=== PATIENT | male | born 1980 | race Caucasian/White ===

== ENCOUNTER 2017-06-09 20:44 | Emergency (ER) | payer BC, MEDICAID ==
[2017-06-09] MEDS ORDERED: Aspirin 81 MG Tab.Chew PO ONE (20:53)
[2017-06-09] MEDS ORDERED: Sodium Chloride 0.9% 1,000 ML IV ONE (20:53)
[2017-06-09] MEDS ORDERED: Nitroglycerin 0.4 MG Tab.SL SL PRN (20:53)
--- NOTE | 2017-06-09 20:56 | EDM.PDOC ---
ED HPI GENERAL MEDICAL PROBLEM - General Chief Complaint: Cardiovascular Problem Stated Complaint: UNK Time Seen by Provider: 06/09/17 20:55 Source of Information: Reports: Patient - History of Present Illness INITIAL COMMENTS - FREE TEXT/NARRATIVE: HISTORY AND PHYSICAL: History of present illness: []Patient presents with history of defibrillator secondary to atrial fibrillation and cardiac hypertrophy, [place] exertion. his defibrillator discharged on 2 separate occasions in the last hour on arrival to the emergency room by private vehicle, he does not appear in distress, he remains lightheaded EKG with inferior changes on ekg. he does not complain of actual chest pain heart rate is ranging between 90 and 113 current No fever nausea vomiting chills sweats no association with shortness of breath or diaphoresis and again no chest pain Review of systems: As per history of present illness and below otherwise all systems reviewed and negative. Past medical history: As per history of present illness and as reviewed below otherwise noncontributory. Surgical history: As per history of present illness and as reviewed below otherwise noncontributory. Social history: No reported history of drug or alcohol abuse. Family history: As per history of present illness and as reviewed below otherwise noncontributory. Physical exam: HEENT: Atraumatic, normocephalic, pupils reactive, negative for conjunctival pallor or scleral icterus, mucous membranes moist, throat clear, neck supple, nontender, trachea midline. Lungs: Clear to auscultation, breath sounds equal bilaterally, chest nontender. Heart: S1S2, regular, negative for clicks, rubs, or JVD. Abdomen: Soft, nondistended, nontender. Negative for masses or hepatosplenomegaly. Negative for costovertebral tenderness. Pelvis: Stable nontender. Genitourinary: Deferred. Rectal: Deferred. Extremities: Atraumatic, negative for cords or calf pain. Neurovascular unremarkable. Neuro: Awake, alert, oriented. Cranial nerves II through XII unremarkable. Cerebellum unremarkable. Motor and sensory unremarkable throughout. Exam nonfocal. Diagnostics: []Lab as below EKG Chest 1 view Therapeutics: []Normal saline bolus Aspirin 324 mg chewable Nitroglycerin 0.4 sublingual discontinued/not provided Morphine 2 mg IV Heparin bolus followed by drip per protocol tnk initially considered however canceled as his repeat EKG findings have improved and appears less likely to be STEMI in the absence of chest pain and dizziness has resolved Impression: []ACS Definitive disposition and diagnosis as appropriate pending reevaluation and review of above. - Related Data Allergies Allergy/AdvReac Type Severity Reaction Status Date / Time No Known Allergies Allergy Verified 06/09/17 20:50 Home Meds: Home Meds Metoprolol Tartrate 25 mg PO BID #30 tablet 10/05/16 [Rx] Metoprolol Tartrate [Lopressor] 25 mg PO Q12HR #30 tablet 10/05/16 [Rx] Rivaroxaban [Xarelto] 1 each PO DAILY #1 tab.ds.pk 10/05/16 [Rx] Rivaroxaban [Xarelto] 15 mg PO BID #42 tablet 10/05/16 [Rx] Past Medical History HEENT History: Reports: None Cardiovascular History: Reports: Afib, Heart Murmur, SOB on Exertion, Other ( See Below) Other Cardiovascular History: hypotropic cardiomyopathy Respiratory History: Reports: None Gastrointestinal History: Reports: None Genitourinary History: Reports: None Musculoskeletal History: Reports: None Neurological History: Reports: None Psychiatric History: Reports: None Endocrine/Metabolic History: Reports: None Hematologic History: Reports: None Immunologic History: Reports: None Oncologic (Cancer) History: Reports: None Dermatologic History: Reports: None - Past Surgical History Cardiovascular Surgical History: Reports: Other (See Below) Social & Family History - Tobacco Use Smoking Status *Q: Former Smoker - Caffeine Use Caffeine Use: Reports: Soda - Recreational Drug Use Recreational Drug Use: Yes Drug Use in Last 12 Months: Yes ED ROS GENERAL - Review of Systems Review Of Systems: ROS reveals no pertinent complaints other than HPI. ED EXAM, GENERAL - Physical Exam Exam: See Below Course - Vital Signs Last Recorded V/S: Last Vital Signs Temp 36.6 C 06/09/17 20:50 Pulse 108 H 06/09/17 20:50 Resp 20 06/09/17 20:50 BP 139/88 06/09/17 20:50 Pulse Ox 98 06/09/17 20:50 - Orders/Labs/Meds Orders: Active Orders 24 hr Category Date Time Status Chest 1V Frontal [CR] Stat Exams 06/09/17 20:54 Taken UA W/MICROSCOPIC [URIN] Stat Lab 06/09/17 20:54 Uncollected Sodium Chloride 0.9% [Normal Saline] 1,000 ml Med 06/09/17 20:53 Active IV STAT Medication Orders Sodium Chloride (Normal Saline) 1,000 mls @ 999 mls/hr IV STAT ONE Stop: 06/09/17 21:53 Last Admin: 06/09/17 21:14 Dose: 999 mls/hr Labs: Laboratory Tests 06/09/17 06/09/17 06/09/17 Range/Units 21:05 21:05 21:05 WBC 12.69 H (4.0-11.0) K/uL RBC 5.38 (4.50-5.90) M/uL Hgb 15.8 (13.0-17.0) g/dL Hct 46.2 (38.0-50.0) % MCV 85.9 (80.0-98.0) fL MCH 29.4 (27.0-32.0) pg MCHC 34.2 (31.0-37.0) g/dL RDW Std Deviation 40.8 (28.0-62.0) fl RDW Coeff of Gopi 13 (11.0-15.0) % Plt Count 214 (150-400) K/uL MPV 10.90 (7.40-12.00) fL Nucleated RBC % 0.0 /100WBC Nucleated RBCs # 0 K/uL Sodium 140 (136-146) mmol/L Potassium 3.8 (3.5-5.1) mmol/L Chloride 105 (98-110) mmol/L Carbon Dioxide 24 (21-31) mmol/L BUN 14 (6.0-23.0) mg/dL Creatinine 1.2 (0.6-1.5) mg/dL Est Cr Clr Drug Dosing 93.41 mL/min Estimated GFR (MDRD) > 60.0 ml/min Glucose 102 (60-110) mg/dL Calcium 9.2 (8.8-10.8) mg/dL Total Bilirubin 0.7 (0.1-1.5) mg/dL AST 20 (5-40) IU/L ALT 24 (8-54) IU/L Alkaline Phosphatase 60 (40-150) Creatine Kinase 163 (9-236) IU/L CK-MB (CK-2) 3.7 (0-6.6) ng/ml Troponin I < 0.10 (0.0-0.29) NG/ML Total Protein 7.3 (6.0-8.0) g/dL Albumin 4.4 (3.5-5.0) g/dL Globulin 2.9 (2.0-3.5) g/dL Albumin/Globulin Ratio 1.5 (1.3-2.8) Meds: Medications Generic Name Dose Route Start Last Admin Trade Name Freq PRN Reason Stop Dose Admin Sodium Chloride 1,000 mls @ 999 mls/hr 06/09/17 20:53 06/09/17 21:14 Normal Saline IV 06/09/17 21:53 999 mls/hr STAT ONE Administration Discontinued Medications Generic Name Dose Route Start Last Admin Trade Name Freq PRN Reason Stop Dose Admin Aspirin 324 mg 06/09/17 20:53 06/09/17 21:15 Aspirin PO 06/09/17 20:54 324 mg ONETIME ONE Administration Heparin Sodium (Porcine) 5,000 units 06/09/17 21:12 06/09/17 21:16 Heparin Sodium IVPUSH 06/09/17 21:13 5,000 units ONETIME ONE Administration Heparin Sod,Pork In 0.45% Nacl Confirm 06/09/17 21:28 Heparin-1/2ns 25,000 Units/500 Administered 06/09/17 21:29 Dose 25,000 unit in 500 mls @ as directed IV .STK-MED ONE Nitroglycerin 0.4 mg 06/09/17 20:53 Nitrostat SL 06/09/17 21:04 Q5M PRN Chest Pain Tenecteplase 50 mg 06/09/17 21:25 Tnkase IV 06/09/17 21:26 NOW STA Protocol Departure - Departure Time of Disposition: 21:54 Disposition: DC/Tfer to Other 70 Reason for Transfer *Q: Other Condition: Fair Clinical Impression: Acute coronary syndrome Forms: ED Department Discharge - My Orders Last 24 Hours: My Active Orders 06/09/17 20:53 Sodium Chloride 0.9% [Normal Saline] 1,000 ml IV STAT 06/09/17 20:54 Chest 1V Frontal [CR] Stat UA W/MICROSCOPIC [URIN] Stat - Assessment/Plan Last 24 Hours: My Active Orders 06/09/17 20:53 Sodium Chloride 0.9% [Normal Saline] 1,000 ml IV STAT 06/09/17 20:54 Chest 1V Frontal [CR] Stat UA W/MICROSCOPIC [URIN] Stat
[2017-06-09] MEDS ORDERED: Heparin Sodium 5,000 Units/ML Vial IVPUSH ONE (21:12)
[2017-06-09] MEDS ORDERED: Tenecteplase 50 MG Kit IV STA (21:25)
[2017-06-09] MEDS ORDERED: Heparin Sod,Pork In 0.45% Nacl 25,000 UNIT/500 ML IV.SOLN IV ONE (21:28)
[2017-06-09 21:39] LABS: CHLORIDE,CL 105 mmol/L (98-110); SODIUM,NA 140 mmol/L (136-146)
[2017-06-10 02:50] VITALS: BP 146/91
--- NOTE | 2017-06-10 15:13 | CR ---
EXAM DATE: 06/09/17 PATIENT'S AGE: 36 Patient: LEIGHTON AGUAYO Facility: [place], [place] Site . Site : [id number] Study: XRay Chest [id number]/23/2017 9:32:13 PM Ordering Physician: Jakob Parham Final Report: Indication: Pain with shortness of breath Technique: Chest 1 view Comparison: October 05, 2016. Findings/Impression: Stable cardiomegaly. Postoperative changes of median sternotomy and a left AICD placement. The lungs and pleural spaces are clear. Osseous structures are intact. Dictated by Elisa Chirinos MD @ Jun 09 2017 9:58PM (Electronic Signature) Report Signed by Proxy. [facility]ANG[facility]OP[facility]IC HOSPITALAltagracia
== END 2017-06-09 22:11 | disposition other institution (70) ==
LOC: MW.ED 20:44
DX: I24.9 Acute ischemic heart disease, unspecified (principal); I48.91 Unspecified atrial fibrillation; Z87.891 Personal history of nicotine dependence
CPT/HCPCS: 36415; 71010; 80053; 82550; 82553; 84484; 85027; 93005; 96361; 96374; 99285; A9270; J1644; J7040

== ENCOUNTER 2017-08-23 13:27 | Emergency (ER) | payer BC, MEDICAID ==
[2017-08-23] MEDS ORDERED: Bacitracin Oint 1 GM U/D Packet TOP ONE (14:20)
[2017-08-23] MEDS ORDERED: Acetaminophen/HYDROcodone 325-7.5 MG Tab PO ONE (14:20)
[2017-08-23] MEDS ORDERED: Bacitracin Oint 1 GM U/D Packet ONE (14:22)
--- NOTE | 2017-08-23 14:26 | EDM.PDOC ---
ED HPI GENERAL MEDICAL PROBLEM - General Chief Complaint: Upper Extremity Injury/Pain Stated Complaint: CUT FINGER ON LT HAND Time Seen by Provider: 08/23/17 14:10 - History of Present Illness INITIAL COMMENTS - FREE TEXT/NARRATIVE: HISTORY AND PHYSICAL: History of present illness: The patient is a 36 rolled male with a history of A. fib who was recently cardioverted at [facility] and is on anticoagulation still but presents after injuring the tips of digits 2 and 3 on his left hand while at home working with tools. He states that it kept losing so he was concerned due to his blood thinner status. He has no other injuries and he has pain at the tips of his fingers. He is right-hand dominant. Patient is unsure of his last tetanus shot but thinks is up-to-date. Review of systems: As per history of present illness and below otherwise all systems reviewed and negative. Past medical history: As per history of present illness and as reviewed below otherwise noncontributory. Surgical history: As per history of present illness and as reviewed below otherwise noncontributory. Social history: No reported history of drug or alcohol abuse. Family history: As per history of present illness and as reviewed below otherwise noncontributory. Physical exam: Renal: Well-developed well-nourished man who is nontoxic and overweight. He seems somewhat anxious in the room about his injury. HEENT: Atraumatic, normocephalic, negative for conjunctival pallor or scleral icterus, mucous membranes moist, throat clear, neck supple, nontender, trachea midline. Lungs: Clear to auscultation, breath sounds equal bilaterally, chest nontender. Heart: S1S2, regular rate and rhythm and no overt murmurs on my evaluation Abdomen: Soft, nondistended, nontender. NABS. Pelvis: Deferred Genitourinary: Deferred. Rectal: Deferred. Extremities: Atraumatic except for digits 2 and 3 of the left hand--at digit 3 there is a superficial abrasions/ skin loss seen which is very small and there is no bleeding or swelling. There is some irritation in the surround but no discrete laceration here. At digit 2 there is a superficial 1 cm laceration which has a slight bruise but is controlled on my evaluation. The surrounding tissue is denuded but there is no depth. Sensation is intact. Nail and nailbed is intact. All other extremities have full range of motion including the remainder of the left hand. The legs are, negative for cords or calf pain. Neurovascular unremarkable. Neuro: Awake, alert, oriented. Cranial nerves II through XII unremarkable. Cerebellum unremarkable. Motor and sensory unremarkable throughout. Exam nonfocal. Diagnostics: [] Therapeutics: Local wound care with irrigation, Surgicel, bacitracin and tube gauze Patient was offered a tetanus shot and is checking with his if he would like to have it done The patient requests pain medication so I will give him one [place] Impression: Superficial finger wounds left digits 2 and 3 Definitive disposition and diagnosis as appropriate pending reevaluation and review of above. 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 Pain Score (Numeric/FACES): 9 - Related Data Allergies Allergy/AdvReac Type Severity Reaction Status Date / Time No Known Allergies Allergy Verified 08/23/17 13:57 Home Meds: Home Meds Amiodarone [Cordarone] 200 mg PO BID 08/23/17 [History] LORazepam [Ativan] 1 mg PO TID PRN 08/23/17 [History] Metoprolol Tartrate [Metoprolol Tartrate] 50 mg PO BID 08/23/17 [History] Warfarin Sodium [Coumadin] 7.5 mg PO 08/23/17 [History] Warfarin [Coumadin] 5 mg PO 08/23/17 [History] Past Medical History HEENT History: Reports: None Cardiovascular History: Reports: Afib, Heart Murmur, SOB on Exertion, Other ( See Below) Other Cardiovascular History: hypotropic cardiomyopathy Respiratory History: Reports: None Gastrointestinal History: Reports: None Genitourinary History: Reports: None Musculoskeletal History: Reports: None Neurological History: Reports: None Psychiatric History: Reports: None Endocrine/Metabolic History: Reports: None Hematologic History: Reports: None Immunologic History: Reports: None Oncologic (Cancer) History: Reports: None Dermatologic History: Reports: None - Past Surgical History Cardiovascular Surgical History: Reports: Other (See Below) Other Cardiovascular Surgeries/Procedures: cardiovesion Social & Family History - Tobacco Use Smoking Status *Q: Never Smoker Second Hand Smoke Exposure: No - Caffeine Use Caffeine Use: Reports: None - Recreational Drug Use Recreational Drug Use: Yes Drug Use in Last 12 Months: Yes Review of Systems - Review of Systems Review Of Systems: ROS reveals no pertinent complaints other than HPI. ED EXAM, GENERAL - Physical Exam Exam: See Below (See dictation) Course - Vital Signs Last Recorded V/S: Last Vital Signs Temp 36.3 C 08/23/17 13:55 Pulse 55 L 08/23/17 13:55 Resp 18 08/23/17 13:55 BP 127/65 08/23/17 13:55 Pulse Ox 95 08/23/17 13:55 - Orders/Labs/Meds Orders: Active Orders 24 hr Category Date Time Status Communication Order [RC] STAT Care 08/23/17 14:19 Ordered Acetaminophen/HYDROcodone [[place] 325-7.5 MG] Med 08/23/17 14:20 Once 1 tab PO ONETIME ONE Bacitracin [Bacitracin Oint 1 GM] Med 08/23/17 14:20 Once 1 dose TOP ONETIME ONE Departure - Departure Time of Disposition: 14:24 Disposition: Home, Self-Care 01 Condition: Good Clinical Impression: Abrasion of finger of left hand Qualifiers: Encounter type: initial encounter Qualified Code(s): S60.419A - Abrasion of unspecified finger, initial encounter - Discharge Information Referrals: Dilia Almaraz PA [Primary Care Provider] - Additional Instructions: The following information is given to patients seen in the emergency department who are being discharged to home. This information is to outline your options for follow-up care. We provide all patients seen in our emergency department with a follow-up referral. The need for follow-up, as well as the timing and circumstances, are variable depending upon the specifics of your emergency department visit. If you don't have a primary care physician on staff, we will provide you with a referral. We always advise you to contact your personal physician following an emergency department visit to inform them of the circumstance of the visit and for follow-up with them and/or the need for any referrals to a consulting specialist. The emergency department will also refer you to a specialist when appropriate. This referral assures that you have the opportunity for followup care with a specialist. All of these measure are taken in an effort to provide you with optimal care, which includes your followup. Under all circumstances we always encourage you to contact your private physician who remains a resource for coordinating your care. When calling for followup care, please make the office aware that this follow-up is from your recent emergency room visit. If for any reason you are refused follow-up, please contact the [facility] emergency department at and ask to speak to the emergency department charge nurse. [facility] Primary care- Internal Medicine and Family [address] [address] Please keep area clean and dry for the next 36 hours and then remove the dressing. He may cleanse with mild soap and water but did not pull off the Surgicel. Please replace gauze dressing or leave open to air. The Surgicel will fall off on its own did not pull it off. Please follow-up with your provider next week as needed and return to ER as needed as discussed. - My Orders Last 24 Hours: My Active Orders 08/23/17 14:19 Communication Order [RC] STAT 08/23/17 14:20 Acetaminophen/HYDROcodone [[place] 325-7.5 MG] 1 tab PO ONETIME ONE Bacitracin [Bacitracin Oint 1 GM] 1 dose TOP ONETIME ONE - Assessment/Plan Last 24 Hours: My Active Orders 08/23/17 14:19 Communication Order [RC] STAT 08/23/17 14:20 Acetaminophen/HYDROcodone [[place] 325-7.5 MG] 1 tab PO ONETIME ONE Bacitracin [Bacitracin Oint 1 GM] 1 dose TOP ONETIME ONE
[2017-08-23] MEDS ORDERED: Diphtheria,Pertussis(Acell),Tetanus Vaccine 0.5 ML Syringe IM ONE (14:42)
[2017-08-23 15:29] VITALS: BP 120/76
== END 2017-08-23 15:00 | disposition home or self-care (01) ==
LOC: MW.ED 13:27
DX: S61.211A Laceration without foreign body of left index finger without damage to nail, initial encounter (principal); S60.411A Abrasion of left index finger, initial encounter; S60.413A Abrasion of left middle finger, initial encounter; I48.91 Unspecified atrial fibrillation; Z23 Encounter for immunization; Z79.01 Long term (current) use of anticoagulants; W27.8XXA Contact with other nonpowered hand tool, initial encounter
CPT/HCPCS: 90471; 90715; 99282; A9270; 99283

== ENCOUNTER 2023-08-15 16:17 | Observation (INO) | payer BC, MEDICAID ==
[2023-08-15 17:24] LABS: BASOPHILS PERCENT AUTO 0.2 % (0.0-1.5); EOSINOPHILS ABSOLUTE AUTO 0.1 K/uL (0.0-0.7); EOSINOPHILS PERCENT AUTO 1.3 % (0.0-7.0); HEMATOCRIT 45.9 % (38.0-50.0); HEMOGLOBIN 15.9 g/dL (13.0-17.0); LYMPHOCYTES ABSOLUTE AUTO 3.1 K/uL (0.6-2.4); LYMPHOCYTES PERCENT AUTO 34.2 % (16.0-40.0); MEAN CORPUSCULAR HEMOGLOBIN 30.1 pg (27.0-32.0); MEAN CORPUSCULAR HGB CONC 34.6 g/dL (31.0-37.0); MEAN CORPUSCULAR VOLUME 86.9 fL (80.0-98.0); MONOCYTES ABSOLUTE AUTO 0.5 K/uL (0.0-0.8); MONOCYTES PERCENT AUTO 4.9 % (0.0-15.0); NEUTROPHILS ABSOLUTE AUTO 5.4 K/uL (1.4-5.7); NEUTROPHILS PERCENT AUTO 59.4 % (48.0-80.0); NRBC ABSOLUTE 0 K/uL; PLATELET COUNT,PLT 232 K/uL (150-400); RED BLOOD CELL COUNT 5.28 M/uL (4.50-5.90); WHITE BLOOD CELL COUNT,WBC 9.14 K/uL (4.0-11.0)
[2023-08-15 17:40] LABS: INR 1.61 (0.86-1.11)
[2023-08-15 17:49] LABS: A/G RATIO 1.1 (0.9-1.6); BILIRUBIN TOTAL 0.5 mg/dL (0.2-1.0); CALCIUM 8.1 mg/dL (8.5-10.1); CARBON DIOXIDE,CO2 24.7 mmol/L (21.0-32.0); CREATININE 1.3 mg/dL (0.8-1.3); EST CRCL DRUG DOSING (CG) 81.25 mL/min; POTASSIUM,K 3.5 mmol/L (3.5-5.1); PROTEIN TOTAL,TP 7.7 g/dL (6.4-8.2)
[2023-08-15] MEDS ORDERED: Metoprolol Tartrate 50 MG Tab PO PRN (21:09)
[2023-08-15] MEDS ORDERED: Sodium Chloride 0.9% 2.5 ML Syringe FLUSH PRN (21:10)
[2023-08-15] MEDS ORDERED: Albuterol/Ipratropium 3.0-0.5 MG/3 ML Neb Soln NEB PRN (21:10)
[2023-08-15] MEDS ORDERED: Ondansetron 4 MG/2 ML SDV IVPUSH PRN (21:10)
[2023-08-15] MEDS ORDERED: Acetaminophen 325 MG Tab PO PRN (21:10)
[2023-08-15] MEDS ORDERED: Polyethylene Glycol 3350 Powder 17 GM Packet PO PRN (21:10)
[2023-08-15] MEDS ORDERED: Sodium Chloride 0.9% 10 ML Syringe FLUSH PRN (21:10)
[2023-08-15] MEDS ORDERED: Sodium Chloride 0.9% 20 ML SDV IV PRN (21:10)
[2023-08-15 22:20] LABS: INR 1.61 (0.86-1.11)
[2023-08-15] MEDS: DOFETILIDE 250 MCG PO SCH (23:39)
[2023-08-16 05:45] LABS: BASOPHILS PERCENT AUTO 0.2 % (0.0-1.5); EOSINOPHILS ABSOLUTE AUTO 0.1 K/uL (0.0-0.7); EOSINOPHILS PERCENT AUTO 1.3 % (0.0-7.0); HEMATOCRIT 43.1 % (38.0-50.0); HEMOGLOBIN 14.5 g/dL (13.0-17.0); LYMPHOCYTES ABSOLUTE AUTO 2.7 K/uL (0.6-2.4); LYMPHOCYTES PERCENT AUTO 32.4 % (16.0-40.0); MEAN CORPUSCULAR HEMOGLOBIN 29.4 pg (27.0-32.0); MEAN CORPUSCULAR HGB CONC 33.6 g/dL (31.0-37.0); MEAN CORPUSCULAR VOLUME 87.2 fL (80.0-98.0); MONOCYTES ABSOLUTE AUTO 0.5 K/uL (0.0-0.8); MONOCYTES PERCENT AUTO 6.2 % (0.0-15.0); NEUTROPHILS PERCENT AUTO 59.9 % (48.0-80.0); NRBC ABSOLUTE 0 K/uL; PLATELET COUNT,PLT 193 K/uL (150-400); RED BLOOD CELL COUNT 4.94 M/uL (4.50-5.90); WHITE BLOOD CELL COUNT,WBC 8.37 K/uL (4.0-11.0)
[2023-08-16 06:05] LABS: INR 1.69 (0.86-1.11)
[2023-08-16 06:07] LABS: CALCIUM 8.1 mg/dL (8.5-10.1); CARBON DIOXIDE,CO2 26.7 mmol/L (21.0-32.0); CREATININE 1.3 mg/dL (0.8-1.3); EST CRCL DRUG DOSING (CG) 66.8 mL/min; POTASSIUM,K 3.8 mmol/L (3.5-5.1)
[2023-08-16] MEDS: DOFETILIDE 250 MCG PO SCH (08:34)
[2023-08-16 11:51] VITALS: BP 124/70
[2023-08-16 11:53] VITALS: PULSE 66
[2023-08-16] MEDS ORDERED: Warfarin Sliding Scale SCH (14:00)
== END 2023-08-16 11:05 | disposition home or self-care (01) ==
LOC: MW.ED 16:17 → MW.MS 19:34
PROVIDERS: ADMIT Family Medicine; ATTEND Family Medicine
DX: I48.0 Paroxysmal atrial fibrillation (principal); I42.1 Obstructive hypertrophic cardiomyopathy; R77.8 Other specified abnormalities of plasma proteins; I24.8 Other forms of acute ischemic heart disease; E66.9 Obesity, unspecified; Z79.01 Long term (current) use of anticoagulants; Z79.899 Other long term (current) drug therapy; Z68.42 Body mass index [BMI] 45.0-49.9, adult
CPT/HCPCS: 36415; 71045; 80048; 80053; 83690; 83735; 84484; 85025; 85610; 93005; 93306; G0378; 93010; 99282; 99285